=== PATIENT | female | born 1985 | race Caucasian/White ===

== ENCOUNTER → 2023-08-09 07:35 | Outpatient (REF) | payer OTHER, SELFPAY | LOC: RAD 07:35 | PROVIDERS: ATTENDING PHYSICIAN Psychiatry & Neurology Neurology; FAMILY PHYSICIAN Nurse Practitioner Adult Health | DX: H93.A9 Pulsatile tinnitus, unspecified ear (principal) | CPT/HCPCS: 70450 ==

== ENCOUNTER → 2023-12-11 18:18 | Outpatient (REF) | payer OTHER, SELFPAY | LOC: MRI 3T 18:18 | PROVIDERS: ATTENDING PHYSICIAN Psychiatry & Neurology Neurology; FAMILY PHYSICIAN Nurse Practitioner Adult Health | DX: R51.9 Headache, unspecified (principal) | CPT/HCPCS: 70544; 70553; A9575 ==

== ENCOUNTER → 2024-02-13 10:11 | Outpatient (REF) | payer OTHER, SELFPAY | LOC: RAD 10:11 | PROVIDERS: ATTENDING PHYSICIAN Psychiatry & Neurology Neurology; FAMILY PHYSICIAN Nurse Practitioner Adult Health | DX: R51.9 Headache, unspecified (principal); I67.1 Cerebral aneurysm, nonruptured | CPT/HCPCS: 70496; Q9967 ==

== ENCOUNTER 2024-02-29 11:59 | Outpatient (REF) | payer OTHER, SELFPAY ==
[2024-02-27 15:10] VITALS: BMI 40.8
[2024-02-29 12:22] LABS: Hemoglobin 13.6 g/dL (12.0-16.0); Mean Corpuscular Hgb 31.8 pg (27.0-31.0); Mean Corpuscular Volume 93.5 fL (81.0-99.0); Mean Platelet Volume 10.9 fL (7.4-10.4); Platelet Count 242 10^3/uL (130-400); Red Blood Cell Count 4.28 10^6/uL (4.20-5.40); Red Cell Dist. Width 12.5 % (11.5-14.5); White Blood Cell Count 10.6 10^3/uL (4.8-10.8)
[2024-02-29 12:31] LABS: INR 1.01; PT 13.3 Sec (11.4-14.6)
[2024-02-29 12:38] VITALS: BP 137/108; BP_SYST 93
[2024-02-29 14:00] VITALS: BP 137/89
[2024-02-29 14:20] VITALS: BP 131/79
[2024-02-29 14:53] VITALS: BP 129/70
[2024-02-29 15:43] LABS: CSF Clarity Clear; CSF Color Colorless; CSF Tube # 3; Red Cell Count/CSF 4 mm^3; White Cell Count/CSF 3 mm^3 (0-5)
[2024-02-29 15:46] LABS: Spinal Fluid Glucose 56 mg/dl (40-70); Spinal Fluid Protein 37 mg/dl (12-60)
== END 2024-02-29 15:12 | disposition home or self-care (01) ==
LOC: RADI 11:59
PROVIDERS: ATTENDING PHYSICIAN Psychiatry & Neurology Neurology; FAMILY PHYSICIAN Nurse Practitioner Adult Health
DX: R51.9 Headache, unspecified (principal); Z01.812 Encounter for preprocedural laboratory examination; Z01.818 Encounter for other preprocedural examination
CPT/HCPCS: 36415; 62328; 82945; 84157; 85027; 85610; 86592; 87015; 87070; 87205; 89051

== ENCOUNTER → 2024-04-19 12:00 | Outpatient (REF) | payer OTHER, SELFPAY | LOC: DHSLP 12:00 | PROVIDERS: ATTENDING PHYSICIAN Nurse Practitioner Adult Health | DX: G47.33 Obstructive sleep apnea (adult) (pediatric) (principal) | CPT/HCPCS: 95800 ==